=== PATIENT | male | born 1975 | race Caucasian/White ===

== ENCOUNTER 2017-11-12 18:08 | Emergency (ER) | payer MEDICAID ==
[~2017-11-12] VITALS: Ht 167.6 cm; Wt 77.1 kg
[2017-11-12 18:22] VITALS: Ht 167.6 cm; Wt 77.1 kg
[2017-11-12 18:52] VITALS: BP 131/91
== END 2017-11-12 18:52 | disposition home or self-care (01) ==
LOC: ED 18:08
DX: B86 Scabies (principal); E11.9 Type 2 diabetes mellitus without complications; G80.9 Cerebral palsy, unspecified